=== PATIENT | female | born 1990 | race Caucasian/White ===

== ENCOUNTER 2017-12-20 19:33 | Emergency (ER) | payer OTHER ==
[~2017-12-20] VITALS: Ht 152.4 cm; Wt 65.3 kg
[~2017-12-20 19:33] MED LIST: PRENATAL CAPLE1 EACH PO
== END 2017-12-20 22:32 | disposition home or self-care (01) ==
LOC: ER 19:33
DX: H53.8 Other visual disturbances (principal)

== ENCOUNTER 2018-10-10 19:45 | Emergency (ER) | payer OTHER ==
[~2018-10-10] VITALS: Ht 152.4 cm; Wt 56.7 kg
[2018-10-10] MEDS ORDERED: CYCLOBENZAPRINE10 MG PO (21:14)
[2018-10-10] MEDS ORDERED: ULTRACET PO (21:14)
== END 2018-10-10 21:25 | disposition home or self-care (01) ==
LOC: ER 19:45
DX: M94.0 Chondrocostal junction syndrome [Tietze] (principal)

== ENCOUNTER 2018-11-11 19:46 | Emergency (ER) | payer OTHER ==
[~2018-11-11] VITALS: Ht 154.9 cm; Wt 61.7 kg
[~2018-11-11 19:46] MED LIST changes: +CYCLOBENZAPRINE10 MG PO; +ULTRACET PO
== END 2018-11-11 22:51 | disposition home or self-care (01) ==
LOC: ER 19:46
DX: R51 Headache (principal)

== ENCOUNTER 2019-04-17 00:22 | Emergency (ER) | payer OTHER ==
[~2019-04-17] VITALS: Ht 154.9 cm; Wt 59.0 kg
[2019-04-17] MEDS ORDERED: ZANTAC150 MG (00:37)
[2019-04-17] MEDS ORDERED: ZANTAC (00:37)
[2019-04-17] MEDS ORDERED: ALEVE (00:38)
[2019-04-17] MEDS ORDERED: ZOLOFT25 MG (00:39)
[2019-04-17] MEDS ORDERED: TOPROL XL25 M1 (00:40)
== END 2019-04-17 03:22 | disposition home or self-care (01) ==
LOC: ER 00:22
DX: R00.2 Palpitations (principal)

== ENCOUNTER 2019-07-29 17:17 | Emergency (ER) | payer OTHER ==
[~2019-07-29] VITALS: Ht 154.9 cm; Wt 61.7 kg
[~2019-07-29 17:17] MED LIST changes: +ALEVE; +TOPROL XL25 M1; +ZANTAC; +ZANTAC150 MG; +ZOLOFT25 MG
[2019-07-29] MEDS ORDERED: PROVERA2.5 MG (17:52)
[2019-07-30] MEDS ORDERED: PEPCID40 MG PO (07:46)
[2019-07-30] MEDS ORDERED: ZOFRAN4 MG PO (07:46)
[2019-07-30] MEDS ORDERED: INTESTINEX680 M1 PO (07:46)
== END 2019-07-30 00:23 | disposition home or self-care (01) ==
LOC: ER 17:17
DX: K52.89 Other specified noninfective gastroenteritis and colitis (principal)